=== PATIENT | male | born 1985 | race Caucasian/White ===

== ENCOUNTER → 2020-02-22 08:39 | Outpatient (CLI) | payer OTHER, SELFPAY ==
[2020-02-22 10:13] LABS: Cholesterol 215 mg/dL (140-199); HDL Cholesterol 58 mg/dL (40-60); LDL Cholesterol Calculated 129 mg/dL (<100); Triglycerides 142 mg/dL (35-150)
== END ==
PROVIDERS: PCP Family Medicine; Referring Provider Family Medicine; Visit Provider Family Medicine
DX: Z00.01 Encounter for general adult medical examination with abnormal findings (principal)
CPT/HCPCS: 36415; 80061; 83036

== ENCOUNTER → 2020-04-26 13:56 | Outpatient (CLI) | payer OTHER, SELFPAY ==
--- NOTE | 2020-04-26 13:57 | DI.RAD.S_ITS ---
PROCEDURE: XR CHEST 2V INDICATIONS: chest pain TECHNIQUE: 2 views of the chest were acquired. COMPARISON: None. FINDINGS: Surgical changes and devices: None. Lungs and pleura: Lungs are well inflated. Lungs are clear. No pleural effusions or pneumothorax. Mediastinum: Mediastinal contours are normal. Heart size is normal. Bones and chest wall: No suspicious bony abnormalities. Soft tissues appear unremarkable. IMPRESSION: No acute cardiopulmonary disease. Dictated by: Sami Pedroza M.D. on 04/26/2020 at 14:58 Approved by: Sami Pedroza M.D. on 04/26/2020 at 14:59
[2020-04-26 15:06] LABS: Alanine Aminotransferase 21 IU/L (<50); Albumin 4.8 g/dL (3.5-5.0); Albumin Globulin Ratio 1.4 (1.0-2.8); Alkaline Phosphatase 53 U/L (38-126); Aspartate Aminotransferase 30 IU/L (17-59); BUN Creatinine Ratio 20.4 (6-22); Bilirubin Total 0.6 mg/dL (0.2-1.3); Blood Urea Nitrogen 22 mg/dL (9-20); Calcium 9.7 mg/dL (8.4-10.2); Carbon Dioxide 30 mmol/L (22-32); Chloride 100 mmol/L (98-107); Estimated Glomerular Filt Rate > 60.0 mL/min (>60); Globulin 3.4 g/dL (1.7-4.1); Glucose 92 mg/dL (70-100); HEMOLYSIS < 15 (0-50); Potassium 4.4 mmol/L (3.4-5.1); Sodium 137 mmol/L (137-145); Total Protein 8.2 g/dL (6.3-8.2)
[2020-04-26 15:10] LABS: C-Reactive Protein Quant < 0.5 mg/dL (<1.0)
[2020-04-26 15:47] LABS: Erythrocyte Sedimentation Rate 3 MM/HR (0-15)
[2020-04-26 15:51] LABS: Add Manual Diff / Slide Review NO; Basophils Absolute Auto 0 /uL (0-100); Basophils Percent Auto 0.5 % (0-2); Eosinophils Absolute Auto 300 /uL (0-450); Eosinophils Percent Auto 3.8 % (2-4); Hematocrit 43.5 % (41-53); Lymphocytes Absolute Auto 1400 /uL (1100-4500); Lymphocytes Percent Auto 20.5 % (25-40); Mean Corpuscular HGB Conc 34.4 % (30-36); Mean Corpuscular Hemoglobin 30.3 PG (26-34); Mean Corpuscular Volume 88.1 fL (80-100); Monocytes Absolute Auto 800 /uL (0-900); Monocytes Percent Auto 11.4 % (3-14); Neutrophils Absolute Auto 4300 /uL (1500-7000); Neutrophils Percent Auto 63.8 % (50-75); Platelet Count 222 X10^3/uL (150-400); Red Blood Cell Count 4.94 X10^6/uL (4.5-5.9); Red Cell Distribution Width 12.8 % (11.6-14.8); White Blood Cell Count 6.8 X10^3/uL (4.5-11.0)
== END ==
PROVIDERS: PCP Family Medicine; Referring Provider Family Medicine; Visit Provider Family Medicine
DX: R07.89 Other chest pain (principal)
CPT/HCPCS: 36415; 71046; 80053; 85025; 85651; 86140

== ENCOUNTER → 2020-05-07 13:20 | Outpatient (CLI) | payer OTHER, SELFPAY ==
--- NOTE | 2020-05-30 07:53 | P.HOLT.S_ITS ---
Surgical Services Coordinator Report Referral & Results Date Patient Seen: 05/07/20 Requesting provider: Gustabo Blair Indication: Chest pain Duration of monitoring (days): 10 Diary information: There were 7 patient triggered events and 7 patient diary entries All 14 of these events were associated with sinus rhythm only Data: Minimum heart rate identified was 37 beats per minute at 05:22 on 05/12/2020 Maximum overall heart rate was 153 beats per minute at 08:34 on 05/13/2020 Less than 1% of identified beats or either ventricular or supraventricular ectopic in origin Wenckebach block was also identified Impression: Normal 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
== END ==
PROVIDERS: PCP Family Medicine; Referring Provider Family Medicine; Visit Provider Family Medicine
DX: R07.9 Chest pain, unspecified (principal)
CPT/HCPCS: 0296T; 0298T

== ENCOUNTER → 2020-06-28 16:35 | Outpatient (CLI) | payer OTHER, SELFPAY ==
--- NOTE | 2020-06-28 16:37 | DI.RAD.S_ITS ---
PROCEDURE: XR SACROILIAC JOINT MIN 3V INDICATIONS: Right SI joint TECHNIQUE: 3 views of the sacroiliac joints were acquired. COMPARISON: None. FINDINGS: Bones: No bony erosions or ankylosis. Right SI joint space is well maintained. No suspicious bony lesions. No fractures. Soft tissues: Overlying bowel gas pattern is normal. No suspicious soft tissue densities. IMPRESSION: No radiographic evidence of right sacroiliitis. Dictated by: Melania Fowler M.D. on 06/29/2020 at 10:41 Approved by: Melania Fowler M.D. on 06/29/2020 at 10:42
== END ==
PROVIDERS: PCP Family Medicine; Referring Provider Family Medicine; Visit Provider Family Medicine
DX: M53.3 Sacrococcygeal disorders, not elsewhere classified (principal)
CPT/HCPCS: 72202